=== PATIENT | female | born 1995 | race Caucasian/White ===

== ENCOUNTER 2019-09-25 21:53 | Emergency (ER) | payer OTHER ==
--- NOTE | 2019-09-25 22:24 | ER Document Report ---
ED Medical Screen (RME) - General Chief Complaint: Chest Pain Stated Complaint: SHORTNESS OF BREATH Time Seen by Provider: 09/25/19 22:22 Mode of Arrival: Ambulatory Information source: Patient Notes: 24-year-old female presents to ED for complaint of chest pain chest tightness off and on for the last week and a half. She states at times it feels like it is a stabbing pain. She states is when she is having it is with every heartbeat. Patient is alert oriented respirations regular nonlabored speaking in full sentences. Her lungs are clear to auscultation at this time. 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 I have greeted and performed a rapid initial assessment of this patient. A comprehensive ED assessment and evaluation of the patient, analysis of test results and completion of medical decision making process will be conducted by an additional ED providers. Physical Exam - Vital signs Vitals: Temp Pulse Resp BP Pulse Ox 97.4 F 100 16 138/73 H 100 09/25/19 22:02 09/25/19 22:02 09/25/19 22:02 09/25/19 22:02 09/25/19 22:02 Course - Vital Signs Vital signs: Temp Pulse Resp BP Pulse Ox 97.4 F 100 16 138/73 H 100 09/25/19 22:02 09/25/19 22:02 09/25/19 22:02 09/25/19 22:02 09/25/19 22:02
[2019-09-25] MEDS ORDERED: ASPIRIN 81 MG TABLET, CHEWABLE PO ONE (22:25)
--- NOTE | 2019-09-25 22:57 | RADIOLOGY REPORT (SQ) ---
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 COMPARISON: None. FINDINGS: The cardiac silhouette is within normal limits. There is no pulmonary vascular congestion. No focal consolidation is identified. No pleural effusions or pneumothorax. IMPRESSION: No evidence of acute cardiopulmonary disease.
[2019-09-25 23:02] LABS: ALKALINE PHOSPHATASE 112 U/L (38-126); ANION GAP 10 (5-19); ASPARTATE AMINO TRANSFERASE 30 U/L (14-36); BILIRUBIN,DIRECT 0.1 mg/dL (0.0-0.4); BILIRUBIN,TOTAL 0.5 mg/dL (0.2-1.3); BLOOD UREA NITROGEN 12 mg/dL (7-20); CALCIUM 9.8 mg/dL (8.4-10.2); CARBON DIOXIDE 21 mmol/L (22-30); CHLORIDE 109 mmol/L (98-107); GLUCOSE 104 mg/dL (75-110); POTASSIUM 4.3 mmol/L (3.6-5.0); TOTAL PROTEIN 9.2 g/dL (6.3-8.2)
[2019-09-26 00:10] LABS: ABSOLUTE BASOPHILS # (AUTO) 0.1 10^3/uL (0.0-0.2); ABSOLUTE EOSINOPHILS # (AUTO) 0.1 10^3/uL (0.0-0.6); ABSOLUTE LYMPHOCYTES (AUTO) 2.9 10^3/uL (0.5-4.7); ABSOLUTE MONOCYTES (AUTO) 0.9 10^3/uL (0.1-1.4); ABSOLUTE NEUT (AUTO) 9.7 10^3/uL (1.7-8.2); BASOPHILS % (AUTO) 0.4 % (0-2); EOSINOPHILS % (AUTO) 0.9 % (0-6); HEMATOCRIT 42.9 % (36.0-47.0); HEMOGLOBIN 14.3 g/dL (12.0-15.5); LYMPHOCYTES % (AUTO) 21.4 % (13-45); MEAN CORPUSCULAR HEMOGLOBIN 27.6 pg (27.0-33.4); MEAN CORPUSCULAR HGB CONC 33.3 g/dL (32.0-36.0); MEAN CORPUSCULAR VOLUME 83 fl (80-97); MONOCYTES % (AUTO) 6.4 % (3-13); PLATELET COUNT 300 10^3/uL (150-450); RED BLOOD COUNT 5.19 10^6/uL (3.72-5.28); RED CELL DISTRIBUTION WIDTH 15.1 % (11.5-14.0); SEGMENTED NEUTROPHILS % (AUTO) 70.9 % (42-78); TOTAL CELLS COUNTED % (AUTO) 100 %; WHITE BLOOD COUNT 13.6 10^3/uL (4.0-10.5)
[2019-09-26] MEDS ORDERED: NORMAL SALINE 1000 ML 1,000 ML IV ONE (01:56)
--- NOTE | 2019-09-26 02:03 | ER Document Report ---
ED Cardiac - General Chief Complaint: Chest Pain Stated Complaint: SHORTNESS OF BREATH Time Seen by Provider: 09/26/19 01:45 Primary Care Provider: ELIZABETH HOUSE MD [ACTIVE STAFF] - Follow up as needed CELE GRIFFITH MD [ACTIVE STAFF] - Follow up as needed Mode of Arrival: Ambulatory Information source: Patient Notes: Patient presents complaining of left-sided chest tightness for the past 10 days. Patient states that occasionally the pain will become sharp. Patient states pain is sharp with deep inspiration. Patient does report mild cough for the past few days. Patient does state pain is worse with movement. Patient complains of mild nausea. No vomiting. Patient denies any previous history of PE or DVT. Patient denies any family history of early coronary artery disease. TRAVEL OUTSIDE OF THE [place] IN LAST 30 DAYS: No - HPI Patient complains to provider of: Chest pain Chest pain location: Under breast Quality of pain: Sharp Pain level currently: 2 Chest pain precipitating factors: At Rest Cardiac risk factors: denies: Hypertension, Smoker, Hx [place] Positive cardiac history: No Associated symptoms: Nausea/vomiting. denies: Diaphoresis, Dizziness, Lightheaded, Shortness of breath Exacerbated by: Denies Relieved by: Nothing Similar symptoms previously: Yes Recently seen / treated by doctor: No - Related Data Allergies/Adverse Reactions: No Known Allergies Allergy (Verified 09/25/19 22:25) Home Medications: antidepressent Past Medical History - General Information source: Patient - Social History Smoking Status: Never Smoker Frequency of alcohol use: None Drug Abuse: None Occupation: Lives with: Family Family History: Reviewed & Not Pertinent Patient has suicidal ideation: No Patient has homicidal ideation: No Endocrine Medical History: Reports: Hx Diabetes Mellitus Type 2 Renal/ Medical History: Reports: Hx Ovarian Cysts Psychiatric Medical History: Reports: Hx Depression Traumatic Medical History: Reports: Hx Traumatic Brain Injury Past Surgical History: Reports: Hx Oral Surgery Review of Systems - Review of Systems Constitutional: No symptoms reported. denies: Fever EENT: No symptoms reported Cardiovascular: Chest pain. denies: Dizziness, Lightheaded Respiratory: Cough - mild. denies: Short of breath Gastrointestinal: Nausea. denies: Vomiting Genitourinary: No symptoms reported Female Genitourinary: No symptoms reported Musculoskeletal: No symptoms reported. denies: Back pain, Leg swelling Skin: No symptoms reported Hematologic/Lymphatic: No symptoms reported Neurological/Psychological: No symptoms reported Physical Exam - Vital signs Vitals: Temp Pulse Resp BP Pulse Ox 97.4 F 100 16 138/73 H 100 09/25/19 22:02 09/25/19 22:02 09/25/19 22:02 09/25/19 22:02 09/25/19 22:02 - General General appearance: Appears well, Alert In distress: None - HEENT Head: Normocephalic, Atraumatic Eyes: Normal Conjunctiva: Normal Nasal: Normal Pharynx: Normal Neck: Normal, Supple. No: Lymphadenopathy - Respiratory Respiratory status: No respiratory distress Chest status: Pain on movement, Pain with deep breathing Breath sounds: Normal Chest palpation: Normal - Cardiovascular Rhythm: Regular Heart sounds: S1 appreciated, S2 appreciated Murmur: No - Abdominal Inspection: Normal Distension: No distension Bowel sounds: Normal Tenderness: Nontender Organomegaly: No organomegaly - Back Back: Normal, Nontender - Extremities General upper extremity: Normal inspection, Normal ROM General lower extremity: Normal inspection, Normal ROM - Neurological Neuro grossly intact: Yes Cognition: Normal [place] Coma Scale Eye Opening: Spontaneous Jameel Coma Scale Verbal: Oriented Jameel Coma Scale Motor: Obeys Commands Jameel Coma Scale Total: 15 - Psychological Associated symptoms: Normal affect, Normal mood - Skin Skin Temperature: Warm Skin Moisture: Dry Skin Color: Normal Course - Re-evaluation Re-evalutation: 09/26/19 02:03 Patient with elevated dimer, CTA ordered. 09/26/19 03:22 Presentation of chest pain in an otherwise well appearing patient. Patient with reproducible chest pain with movement of the trunk. Low clinical suspicion for ACS given clinical history, exam, EKG without ST elevations or depressions, and negative initial troponin. HEART score less than or equal to 3. PE also seems unlikely with negative CTA and absence of dyspnea. CXR without evidence of pneumothorax or pneumonia. Chest pain in a patient without evidence of cardiac or other serious etiology on workup today. I discussed with patient that, based on their age, risk factors and emergency department testing today, the likelihood that their symptoms are r elated to a heart attack is very low. The patient demonstrates decision making capacity and has verbalized an understanding of these risks to me. Based on this, the patient has chosen to follow-up as an outpatient. Usual chest pain return precautions reviewed. The patient states understanding and agreement with this plan. - Vital Signs Vital signs: Temp Pulse Resp BP Pulse Ox 98.1 F 100 16 106/70 100 09/26/19 03:48 09/25/19 22:02 09/26/19 03:48 09/26/19 03:48 09/26/19 03:48 - Laboratory Result Diagrams: 09/25/19 23:55 09/25/19 22:36 Laboratory results interpreted by me: 09/25/19 09/25/19 09/25/19 22:36 23:55 23:55 WBC 13.6 H RDW 15.1 H Absolute Neuts (auto) 9.7 H D-Dimer 0.53 H Chloride 109 H Carbon Dioxide 21 L Total Protein 9.2 H 09/26/19 03:22 Labs- Entire Visit 09/25/19 09/25/19 09/25/19 22:36 22:36 23:55 WBC 13.6 H RBC 5.19 Hgb 14.3 Hct 42.9 MCV 83 MCH 27.6 MCHC 33.3 RDW 15.1 H Plt Count 300 Lymph % (Auto) 21.4 [place] % (Auto) 6.4 Eos % (Auto) 0.9 Baso % (Auto) 0.4 Absolute Neuts (auto) 9.7 H Absolute Lymphs (auto) 2.9 Absolute Monos (auto) 0.9 Absolute Eos (auto) 0.1 Absolute Basos (auto) 0.1 Seg Neutrophils % 70.9 D-Dimer Sodium 139.9 Potassium 4.3 Chloride 109 H Carbon Dioxide 21 L Anion Gap 10 BUN 12 Creatinine 0.57 Est GFR ( Amer) > 60 Est GFR (MDRD) Non-Af > 60 Glucose 104 Calcium 9.8 Total Bilirubin 0.5 Direct Bilirubin 0.1 Neonat Total Bilirubin Not Reportable Neonat Direct Bilirubin Not Reportable Neonat Indirect Bili Not Reportable AST 30 ALT 35 Alkaline Phosphatase 112 Troponin I Total Protein 9.2 H Albumin 5.0 Serum HCG, Qual NEGATIVE 09/25/19 09/25/19 23:55 23:55 WBC RBC Hgb Hct MCV MCH MCHC RDW Plt Count Lymph % (Auto) [place] % (Auto) Eos % (Auto) Baso % (Auto) Absolute Neuts (auto) Absolute Lymphs (auto) Absolute Monos (auto) Absolute Eos (auto) Absolute Basos (auto) Seg Neutrophils % D-Dimer 0.53 H Sodium Potassium Chloride Carbon Dioxide Anion Gap BUN Creatinine Est GFR ( Amer) Est GFR (MDRD) Non-Af Glucose Calcium Total Bilirubin Direct Bilirubin Neonat Total Bilirubin Neonat Direct Bilirubin Neonat Indirect Bili AST ALT Alkaline Phosphatase Troponin I < 0.012 Total Protein Albumin Serum HCG, Qual - Diagnostic Test Radiology reviewed: Reports reviewed - EKG Interpretation by Me EKG shows normal: Sinus rhythm Rate: Tachycardia Additional EKG results interpreted by me: 09/26/19 02:00 qtc 434, no ST elevation Discharge - Discharge Clinical Impression: Chest pain Qualifiers: Chest pain type: unspecified Qualified Code(s): R07.9 - Chest pain, unspecified Condition: Stable Disposition: HOME, SELF-CARE Instructions: Chest Wall Pain ([facility]), Chest Pain of Unclear Cause ([facility]) Additional Instructions: Return immediately for any new or worsening symptoms Followup with your primary care provider, call tomorrow to make a followup appointment Follow-up with a wood block artist for further evaluation, call Friday for an appointment Prescriptions: Naproxen [Naprosyn 250 Nmg Tablet] 1 tab PO BID #14 tablet Referrals: CELE GRIFFITH MD [ACTIVE STAFF] - Follow up as needed ELIZABETH HOUSE MD [ACTIVE STAFF] - Follow up as needed
--- NOTE | 2019-09-26 03:04 | RADIOLOGY REPORT (SQ) ---
EXAM DESCRIPTION: CT CHEST ANGIOGRAPHY WITHOUT THEN WITH IV CONTRAST COMPLETED DATE/TME: 09/26/2019 01:56 CLINICAL HISTORY: 24 years, Female, cp, elevated d dimer COMPARISON: None. TECHNIQUE: Images stored on PACS. All CT scanners at this facility use dose modulation, iterative reconstruction, and/or weight based dosing when appropriate to reduce radiation dose to as low as reasonably achievable (ALARA). [facility]: Dose Right [facility]: CareDose [facility]: Dose Right [facility]: Teradose 4D [facility]: [employer] LIMITATIONS: None. FINDINGS: Imaging is degraded by patient motion, with resultant artifact. The best possible images were obtained. No evidence of pulmonary embolus. Small branch vessels poorly seen. The aorta is of normal caliber. No aneurysm or dissection. Significant artifact from left arm injection and persistent venous opacification. The heart is prominent. No effusion. No bulky adenopathy. The lungs are grossly clear. Detail is obscured by motion. No effusion. No pneumothorax Hepatic steatosis. Visualized bones are within normal limits, for age. IMPRESSION: Imaging is degraded by patient motion, with resultant artifact. The best possible images were obtained. No evidence of pulmonary embolus. Lungs grossly clear. Incidental note made of hepatic steatosis TECHNICAL DOCUMENTATION: Quality ID # [id number]: Final reports with documentation of one or more dose reduction techniques (e.g., Automated exposure control, adjustment of the mA and/or kV according to patient size, use of iterative reconstruction technique) copyright 2011 [employer]- All Rights Reserved
[2019-09-26 04:06] VITALS: BP 106/70
--- NOTE | 2019-09-26 16:17 | EKG REPORT ---
SEVERITY:- OTHERWISE NORMAL ECG - SINUS TACHYCARDIA : Confirmed by: Catina Burdick MD 26-Sep-2019 16:17:03
== END 2019-09-26 04:05 | disposition home or self-care (01) ==
LOC: ER 21:53
DX: R07.89 Other chest pain (principal); R07.1 Chest pain on breathing; R05 Cough; R11.0 Nausea; R79.89 Other specified abnormal findings of blood chemistry; R00.0 Tachycardia, unspecified; E11.9 Type 2 diabetes mellitus without complications; F32.9 Major depressive disorder, single episode, unspecified; Z79.899 Other long term (current) drug therapy
CPT/HCPCS: 93005; 99285; 96360; 36415; 84703; 85025; 80053; 84484; 85379; 71046; 71275; 93010; J7030